=== PATIENT | female | born 1985 | race Caucasian/White ===

== ENCOUNTER 2016-12-17 19:44 | Observation (INO) | payer BC ==
--- NOTE | 2016-12-17 19:53 | PDOC ---
[id number] No Limitations - History of Present Illness Initial Comments: 12/17/16 20:54 The patient is a 31-year-old female, with a significant past medical history of anxiety and panic attacks, who presents to the emergency department complaining of substernal chest pain and shortness of breath that began earlier this afternoon at approximately 17:00 pm. The patient reports she was on the phone when she began to get into the heated argument with the person on the other end of the line. At the moment she began to feel chest tightness and sharp substernal non-radiating chest pain. She rates the pain as a 10/10. She reports associated SOB, but denies palpitations, diaphoresis, or syncope. She reports these symptoms feel similar to her previous anxiety attacks. The patient reports she was at work, at the [employer] [employer] when her symptoms began. She states she was given xanax with minimal relief. She states her symptoms were exacerbated when staff members in the [place] kept coming to check on her. She denies any nausea, vomiting, diarrhea, or constipation. Her LMP was on . She denies any recent travel or sick contacts Allergies: fentanyl and ibuprofen (anaphalaxyis) Past Surgical History: Shoulder surgery (1 month ago) Social History: Non-smoker. Denies alcohol or drug use. <Rachel Mejias - Last Filed: 12/18/16 16:37> <Shazia Andrews - Last Filed: 12/18/16 22:38> - General Stated Complaint: ANXIETY, CHEST PAIN Time Seen by Provider: 12/17/16 19:50 Past History <Rachel Mejias - Last Filed: 12/18/16 16:37> <Shazia Andrews - Last Filed: 12/18/16 22:38> - Past Medical History Allergies/Adverse Reactions: Allergies Allergy/AdvReac Type Severity Reaction Status Date / Time fentanyl Allergy Verified 12/17/16 20:28 ibuprofen Allergy Verified 12/17/16 20:28 Home Medications: Ambulatory Orders Oxycodone HCl/Acetaminophen [Percocet 5-325 mg Tablet] 1 - 2 tab PO Q4H PRN Alprazolam [Xanax] 0.25 mg PO ONCE #4 tablet MDD 2 12/18/16 Multivitamins [Multivit ([facility] Formulary)] 1 tab PO DAILY 12/18/16 Review of Systems - Review of Systems Able to Perform ROS?: Yes Comments:: 12/17/16 20:54 GENERAL/CONSTITUTIONAL: No fever or chills. No weakness. HEAD, EYES, EARS, NOSE AND THROAT: No change in vision. No ear pain or discharge. No sore throat. CARDIOVASCULAR: +Chest pain, +shortness of breath. RESPIRATORY: No cough, wheezing, or hemoptysis. GASTROINTESTINAL: No nausea, vomiting, diarrhea or constipation. GENITOURINARY: No dysuria, frequency, or change in urination. MUSCULOSKELETAL: No joint or muscle swelling or pain. No neck or back pain. SKIN: No rash NEUROLOGIC: +Anxiety. No headache, vertigo, loss of consciousness, or change in strength/sensation. ENDOCRINE: No increased thirst. No abnormal weight change. HEMATOLOGIC/LYMPHATIC: No anemia, easy bleeding, or history of blood clots. ALLERGIC/IMMUNOLOGIC: No hives or skin allergy. <Rachel Mejias - Last Filed: 12/18/16 16:37> *Physical Exam - Vital Signs Last Vital Signs Temp Pulse Resp BP Pulse Ox 98.1 F 86 18 108/64 100 12/17/16 20:04 12/17/16 20:04 12/17/16 20:04 12/17/16 20:04 12/17/16 20:04 - Physical Exam Comments: 12/17/16 20:55 GENERAL: Oriented but somnolent HEAD: No signs of trauma EYES: PERRLA, EOMI, sclera anicteric, conjunctiva clear ENT: Auricles normal inspection, hearing grossly normal, nares patent, oropharynx clear without exudates. Moist mucosa NECK: Normal ROM, supple, no lymphadenopathy, JVD, or masses LUNGS: Breath sounds equal, clear to auscultation bilaterally. No wheezes, and no crackles HEART: Regular rate and rhythm, normal S1 and S2, no murmurs, rubs or gallops ABDOMEN: Soft, nontender, normoactive bowel sounds. No guarding, no rebound. No masses EXTREMITIES: Normal range of motion, no edema. No clubbing or cyanosis. No cords, erythema, or tenderness NEUROLOGICAL: Cranial nerves II through XII grossly intact. Normal speech, normal gait SKIN: Warm, Dry, normal turgor, no rashes or lesions noted. <Rachel Mejias - Last Filed: 12/18/16 16:37> Heart Score/ECG Review - ECG Impressions Comment:: 12/17/16 22:31 Vent. Rate: 66 bpm IMPRESSION: Normal sinus rhythm. Nonspecific T wave abnormality. <Rachel Mejias - Last Filed: 12/18/16 16:37> ED Treatment Course - LABORATORY CBC & Chemistry Diagram: 12/18/16 05:30 12/17/16 20:20 - RADIOLOGY Radiology Studies Ordered: 12/18/16 16:37 EXAM: CXR INTERPRETED BY: Dr. Ramachandran REVIEWED BY: Dr. Andrews IMPRESSION: No acute pathology. <Rachel Mejias - Last Filed: 12/18/16 16:37> - LABORATORY CBC & Chemistry Diagram: 12/18/16 05:30 12/17/16 20:20 <Shazia Andrews - Last Filed: 12/18/16 22:38> Medical Decision Making - Medical Decision Making 12/18/16 22:35 Pt came for chest pain that began today after an argument with her baby's dad, while she was at work. Pt states that she has never had chest pain like this. First cardiac enzymes is normal, however, pt is found to be anemic. We have no baseling blood tests on the patient. She also has ischemic flt T waves on EKG; we coffey mila old EKGs and it is not clear if this is an old or new development. Pt will be admitted to telemetry observation to investigate her anemia and ischemic EKG findings and her chest pain <Shazia Andrews - Last Filed: 12/18/16 22:38> *DC/Admit/Observation/Transfer - Attestations Scribe Attestion: 12/17/16 20:55 Documentation prepared by Rachel Mejias, acting as medical officer for Shazia Andrews MD. <Rachel Mejias - Last Filed: 12/18/16 16:37> - Discharge Dispostion Admit: Yes <Shazia Andrews - Last Filed: 12/18/16 22:38> Diagnosis at time of Disposition: Anemia, Abnormal ECG, Chest pain - Discharge Dispostion Condition at time of disposition: Stable - Prescriptions - Referrals
[2016-12-17] MEDS ORDERED: LORazepam 1 MG TABLET PO ONE (20:00)
[2016-12-17 20:42] LABS: EOSINOPHIL 2.3 % (0-4.5); MCH 22.6 pg (25.7-33.7); MCHC 31.6 g/dl (32.0-36.0); MEAN CELL VOLUME 71.6 fl (80-96); MEAN PLT VOLUME 7.2 fl (7.5-11.1); PLATELET COUNT 305 K/MM3 (134-434); RDW 19.2 % (11.6-15.6); WHITE BLOOD COUNT 6.1 K/mm3 (4.0-10.0)
[2016-12-17] MEDS ORDERED: CLOPIDOGREL BISULFATE 75 MG TABLET (FP) PO ONE (20:46)
[2016-12-17] MEDS ORDERED: ACETAMINOPHEN 325 MG TABLET (FP) PO ONE (20:47)
[2016-12-17] MEDS ORDERED: diphenhydrAMINE HCL 25 MG CAPSULE (FP) PO ONE ×2 (20:59→21:01)
[2016-12-17] MEDS ORDERED: ACETAMINOPHEN 325 MG TABLET (FP) ONE (21:01)
[2016-12-17] MEDS ORDERED: OXYCODONE/APAP 5/325MG COMBO TABLET PO ONE (21:05)
[2016-12-17] MEDS ORDERED: OXYCODONE/APAP 5/325MG COMBO TABLET ONE (21:08)
[2016-12-17 21:21] LABS: ALBUMIN 3.3 g/dl (3.4-5.0); ANION GAP 14 (8-16); BILIRUBIN,TOTAL 0.1 mg/dL (0.2-1.0); CALCIUM 8.1 mg/dL (8.5-10.1); CO2 24 mmol/L (21-32); CREATININE 0.7 mg/dL (0.55-1.02); GLUCOSE,RANDOM 109 mg/dL (74-106); SGOT/AST 26 U/L (15-37); SGPT/ALT 25 U/L (12-78); TOT PROT 6.7 g/dl (6.4-8.2)
[2016-12-17 21:24] LABS: ALK PHOS 84 U/L (45-117); TROPONIN I < 0.02 ng/ml (0.00-0.05)
[2016-12-17 21:30] LABS: ANISOCYTOSIS 1+; HYPOCHROMIA 2+; MICROCYTOSIS 1+; PLATELET ESTIMATE ADEQUATE (NORMAL)
--- NOTE | 2016-12-17 22:34 | HP ---
CHIEF COMPLAINT: Chest Pain PCP: Dr. Theo Delgado HISTORY OF PRESENT ILLNESS: Patient is a 31 year old female with a PMHx of anemia and anxiety (Diagnosed in 2011) who complaing of substernal chest pain every time she tries to take a deep breath in. Patient reports around 1700 today at work she was on the phone with her kids father and was in a heated argument. After she finished the conversation patient states she felt "very hot", flushed, and could not breathe properly. At the office she was given xanax and oxygen. When asking to describe the chest pain patient states she is unable to describe the pain and that it was a "weird" chest pain. She reports it's nonradiating, intermittent lasting for a few seconds and the pain only comes when she takes a deep breath in. Patient reports a history of chest pain but never went to the hospital for it and relates it to her anxiety. She denies every having an ECHO or stress test done. LMP was on 11/19/16. Patient's EKG was abnormal in the ED. Otherwise, patient denies palpitations, diaphoresis, fever, chills, nausea, vomiting, headaches, dizziness, loss of consciousness, acute vision changes, abdominal pain, dysuria, hematuria, urgency, difficulty ambulating. ER course was notable for: (1) Plavix 75mg (2) Benadryl 50mg (3) Tylenol 650mg Recent Travel: None PAST MEDICAL HISTORY: Anemia and Anxiety diagnosed in 2011 PAST SURGICAL HISTORY: Social History: Smoking: Denies Alcohol: Denies Drugs: Denies Family History: Denies any sudden cardiac arrest or NM's. Does report HTN and DM in both her parents sides Allergies fentanyl Allergy (Verified 12/17/16 20:28) ibuprofen Allergy (Verified 12/17/16 20:28) HOME MEDICATIONS: Medication Instructions Recorded Alprazolam [Xanax] 0.25 mg PO ONCE 12/17/16 Oxycodone HCl/Acetaminophen 1 - 2 tab PO Q4H PRN 12/17/16 [Percocet 5-325 mg Tablet] REVIEW OF SYSTEMS CONSTITUTIONAL: Absent: fever, chills, diaphoresis, generalized weakness, malaise, loss of appetite, weight change HEENT: Absent: rhinorrhea, nasal congestion, throat pain, throat swelling, difficulty swallowing, mouth swelling, ear pain, eye pain, visual changes CARDIOVASCULAR: chest pain Absent: syncope, palpitations, irregular heart rate, lightheadedness, peripheral edema RESPIRATORY: shortness of breath Absent: cough, dyspnea with exertion, orthopnea, wheezing, stridor, hemoptysis GASTROINTESTINAL: Absent: abdominal pain, abdominal distension, nausea, vomiting, diarrhea, constipation, melena, hematochezia GENITOURINARY: Absent: dysuria, frequency, urgency, hesitancy, hematuria, flank pain, genital pain MUSCULOSKELETAL: Absent: myalgia, arthralgia, joint swelling, back pain, neck pain SKIN: Absent: rash, itching, pallor HEMATOLOGIC/IMMUNOLOGIC: Absent: easy bleeding, easy bruising, lymphadenopathy, frequent infections ENDOCRINE: Absent: unexplained weight gain, unexplained weight loss, heat intolerance, cold intolerance NEUROLOGIC: Absent: headache, focal weakness or paresthesias, dizziness, unsteady gait, seizure, mental status changes, bladder or bowel incontinence PSYCHIATRIC: anxiety Absent: depression, suicidal or homicidal ideation, hallucinations. PHYSICAL EXAMINATION Vital Signs - 24 hr 12/17/16 20:04 Temperature 98.1 F Pulse Rate 86 Respiratory 18 Rate Blood Pressure 108/64 O2 Sat by Pulse 100 Oximetry (%) GENERAL: Awake, alert, and fully oriented, in no acute distress. HEAD: Normal with no signs of trauma. EYES: Pupils equal, round and reactive to light, extraocular movements intact, sclera anicteric, conjunctiva clear. No lid lag. EARS, NOSE, THROAT: Ears normal, nares patent, oropharynx clear without exudates. Moist mucous membranes. NECK: Normal range of motion, supple without lymphadenopathy, JVD, or masses. LUNGS: Breath sounds equal, clear to auscultation bilaterally. No wheezes, and no crackles. No accessory muscle use. HEART: Regular rate and rhythm, normal S1 and S2 without murmur, rub or gallop. ABDOMEN: Soft, nontender, not distended, normoactive bowel sounds, no guarding, no rebound, no masses. No hepatomegaly or splenomegaly. MUSCULOSKELETAL: Normal range of motion at all joints. No bony deformities or tenderness. No CVA tenderness. UPPER EXTREMITIES: 2+ pulses, warm, well-perfused. No cyanosis. No clubbing. Cap refill <2 seconds. No peripheral edema. LOWER EXTREMITIES: 2+ pulses, warm, well-perfused. No calf tenderness. No peripheral edema. NEUROLOGICAL: Cranial nerves II-XII intact. Normal speech. PSYCHIATRIC: Cooperative. Good eye contact. Appropriate mood and affect. SKIN: Warm, dry, normal turgor, no rashes or lesions noted. Laboratory Results - last 24 hr 12/17/16 12/17/16 12/17/16 20:20 20:20 20:20 WBC 6.1 RBC 3.92 Hgb 8.9 L Hct 28.1 L MCV 71.6 L MCHC 31.6 L RDW 19.2 H Plt Count 305 MPV 7.2 L Neutrophils % 47.0 Lymphocytes % 40.4 H Monocytes % 9.3 Eosinophils % 2.3 Basophils % 1.0 Platelet Estimate Adequate Hypochromic-Microcytic 2+ Anisocytosis 1+ Microcytosis 1+ Morphology Comment Slide scanned Sodium 144 Potassium 3.7 Chloride 106 Carbon Dioxide 24 Anion Gap 14 BUN 11 Creatinine 0.7 Creat Clearance w eGFR > 60 Random Glucose 109 H Calcium 8.1 L Total Bilirubin 0.1 L AST 26 ALT 25 Alkaline Phosphatase 84 Creatine Kinase 202 H CK-MB (CK-2) 1.200 Troponin I < 0.02 Total Protein 6.7 Albumin 3.3 L Serum , Qual Negative EKG: NSR @66 BPMP, (+) Non-specific T-wave abnormalities Chest X-ray: Negative for acute pathology ASSESSMENT/PLAN: Patient is a 31 year old female with a PMHx of Anemia and Anxiety who presents to the ED complaining of atypical chest pain that began today after a heated argument with her kids father and continues to occur every time she takes a deep breath in. Patient admitted for observation telemetry for further monitoring and management. Atypical Chest Pain -Likely from anxiety vs. drug use vs. ACS -Troponin negative -Chest x-ray negative for acute pathology -No active chest pain -EKG revealed nonspecific T-wave abnormalities -Repeat second set of troponin -Urine toxicology ordered -Lipid profile ordered -EKG in the morning -Cardiac monitoring Pruritis -Benadryl 50mg PO Normocytic Anemia -Hgb of 8.9 -FE, TIBC, Ferritin, and Reticulocyte ordered -Transfuse if <7 -Trend CBC Anxiety -Xanax 0.25mg F/E/N -On no fluids -Electrolytes wnl -Regular diet Prophylaxis -SCD's for DVT -No GI needed Disposition -Full code -Will continue to monitor on telemetry. Visit type - Emergency Visit Emergency Visit: Yes ED Registration Date: 12/17/16 Care time: The patient presented to the Emergency Department on the above date and was hospitalized for further evaluation of their emergent condition. - New Patient This patient is new to me today: Yes Date on this admission: 12/18/16 - Critical Care Critical Care patient: No
[2016-12-17] MEDS ORDERED: ALPRAZolam 0.25 MG TABLET PO ONE (23:32)
[2016-12-17] MEDS ORDERED: ALPRAZolam 0.25 MG TABLET ONE (23:42)
--- NOTE | 2016-12-18 00:59 | PN ---
<Claudia Brown - Last Filed: 12/18/16 01:15> Teaching Attending Note ATTENDING PHYSICIAN STATEMENT I saw and evaluated the patient. I reviewed the resident's note and discussed the case with the resident. I agree with the resident's findings and plan as documented. SUBJECTIVE: The patient is a 31 yo F with a PMhx of Anemia, anxiety who presented to Ed complaining of 1 day hx of mid sternal chest pain, 10/10 in severity, nonradiating. Patient request Ativan upon evaluation and what to makes sure she receives a new prescription for Xanax upon discharge. Denies associated SOB. Denies any exertional activity. No prior episode of chest pain before. No family hx of CAD or CA. PMHx: Anemia and Anxiety PShx: C- Section Allergies: Fentanyl, Ibuprofen Social hx: Denies Fam hx: HTN and DM OBJECTIVE: Physical Last Vital Signs Temp Pulse Resp BP Pulse Ox 98.1 F 86 18 108/64 100 12/17/16 20:04 12/17/16 20:04 12/17/16 20:04 12/17/16 20:04 12/17/16 20:04 GENERAL: Awake, alert, and fully oriented, in no acute distress HEENT: Atraumatic. PERRLA, EOMI. Moist mucosa. No JVD LUNGS: No distress, speaks full sentences, clear to auscultation bilaterally HEART: Regular rate and rhythm, normal S1 and S2, no murmurs, rubs or gallops, peripheral pulses normal and equal bilaterally. ABDOMEN: Soft, nontender, normoactive bowel sounds. No guarding, no rebound. No masses EXTREMITIES: Normal inspection, Normal range of motion, no edema. No clubbing or cyanosis. NEUROLOGICAL: + Appears somewhat lethargic and somnolent. Cranial nerves II through XII grossly intact. Normal speech, normal gait, no focal sensorimotor deficits SKIN: Warm, Dry, normal turgor, no rashes or lesions noted. Labs CBCD WBC 6.1 K/mm3 (4.0-10.0) 12/17/16 20:20 RBC 3.92 M/mm3 (3.60-5.2) 12/17/16 20:20 Hgb 8.9 GM/dL (10.7-15.3) L 12/17/16 20:20 Hct 28.1 % (32.4-45.2) L 12/17/16 20:20 MCV 71.6 fl (80-96) L 12/17/16 20:20 MCHC 31.6 g/dl (32.0-36.0) L 12/17/16 20:20 RDW 19.2 % (11.6-15.6) H 12/17/16 20:20 Plt Count 305 K/MM3 (134-434) 12/17/16 20:20 MPV 7.2 fl (7.5-11.1) L 12/17/16 20:20 CMP Sodium 144 mmol/L (136-145) 12/17/16 20:20 Potassium 3.7 mmol/L (3.5-5.1) 12/17/16 20:20 Chloride 106 mmol/L (98-107) 12/17/16 20:20 Carbon Dioxide 24 mmol/L (21-32) 12/17/16 20:20 Anion Gap 14 (8-16) 12/17/16 20:20 BUN 11 mg/dL (7-18) 12/17/16 20:20 Creatinine 0.7 mg/dL (0.55-1.02) 12/17/16 20:20 Creat Clearance w eGFR > 60 (>60) 12/17/16 20:20 Calcium 8.1 mg/dL (8.5-10.1) L 12/17/16 20:20 Total Bilirubin 0.1 mg/dL (0.2-1.0) L 12/17/16 20:20 AST 26 U/L (15-37) 12/17/16 20:20 ALT 25 U/L (12-78) 12/17/16 20:20 Alkaline Phosphatase 84 U/L (45-117) 12/17/16 20:20 Total Protein 6.7 g/dl (6.4-8.2) 12/17/16 20:20 Albumin 3.3 g/dl (3.4-5.0) L 12/17/16 20:20 Radiological Exams Chest Xray- No acute pathology. Final read pending. ASSESSMENT AND PLAN: The patient is a 31 yo F with no cardiac history presenting with atypical chest pain and nonspecific EKG changes. - Telemetry observation. - Cardiac enzymes - EKG in AM - If workup is normal and no acute event on Telemetry, may follow up on outpatient basis. Documentation prepared by Claudia Brown, acting as forensic medical examiner for Oc Killian MD <Oc Killian - Last Filed: 12/18/16 06:23> Teaching Attending Note Name of Resident: Gavi Metcalf A:
[2016-12-18 07:17] LABS: BASOPHIL 0.5 % (0-2.0); EOSINOPHIL 2.7 % (0-4.5); MCH 22.8 pg (25.7-33.7); MCHC 31.9 g/dl (32.0-36.0); MEAN CELL VOLUME 71.4 fl (80-96); MEAN PLT VOLUME 7.5 fl (7.5-11.1); NEUTROPHILS 43.5 % (42.8-82.8); PLATELET COUNT 284 K/MM3 (134-434); RDW 19.4 % (11.6-15.6); WHITE BLOOD COUNT 5.1 K/mm3 (4.0-10.0)
[2016-12-18 07:51] LABS: CHOLESTEROL 154 mg/dL (50-200); LDL CHOLESTEROL (ONLY SJRH) 99 mg/dL (5-100); TROPONIN I < 0.02 ng/ml (0.00-0.05)
[2016-12-18 11:24] VITALS: BMI 27.4
[2016-12-18 11:45] LABS: URINE APPEARANCE SLCLOUDY; URINE BILIRUBIN NEGATIVE (NEGATIVE); URINE BLOOD NEGATIVE (NEGATIVE); URINE COLOR YELLOW; URINE GLUCOSE (UA) NEGATIVE (NEGATIVE); URINE KETONE NEGATIVE (NEGATIVE); URINE LEUK ESTERASE NEGATIVE (NEGATIVE); URINE NITRITE NEGATIVE (NEGATIVE); URINE PROTEIN NEGATIVE (NEGATIVE); URINE UROBILINOGEN NEGATIVE E.U./dl (0.2-1.0)
[2016-12-18 12:10] LABS: URINE MARIJUANA THC POSITIVE ng/ml (CUTOFF=50)
[2016-12-18 12:47] LABS: TROPONIN I < 0.02 ng/ml (0.00-0.05)
[2016-12-18] MEDS ORDERED: ALPRAZolam 0.25 MG TABLET PO PRN (14:11)
[2016-12-18] MEDS ORDERED: OXYCODONE/APAP 5/325MG COMBO TABLET PO PRN (14:12)
[2016-12-18 18:37] LABS: TROPONIN I < 0.02 ng/ml (0.00-0.05)
--- NOTE | 2016-12-18 18:44 | PN ---
Physical Exam: SUBJECTIVE: Patient seen and examined No further chest pain. comfortable post Xanax 0.25mg x one dose given in ED. OBJECTIVE: Vital Signs Temperature 98 F 12/18/16 14:33 Pulse Rate 76 12/18/16 14:33 Respiratory Rate 16 12/18/16 14:33 Blood Pressure 114/71 12/18/16 14:33 O2 Sat by Pulse Oximetry (%) 98 12/18/16 14:33 GENERAL: The patient is awake, alert, and fully oriented, in no acute distress. HEAD: Normal with no signs of trauma. EYES: PERRL, extraocular movements intact, sclera anicteric, conjunctiva clear. No ptosis. ENT: Ears normal, nares patent, oropharynx clear without exudates, moist mucous membranes. NECK: Trachea midline, full range of motion, supple. LUNGS: Breath sounds equal, clear to auscultation bilaterally, no wheezes, no crackles, no accessory muscle use. HEART: Regular rate and rhythm, S1, S2 without murmur, rub or gallop. ABDOMEN: Soft, nontender, nondistended, normoactive bowel sounds, no guarding, no rebound, no hepatosplenomegaly, no masses. EXTREMITIES: 2+ pulses, warm, well-perfused, no edema. NEUROLOGICAL: Cranial nerves II through XII grossly intact. Normal speech, gait not observed. PSYCH: Normal mood, normal affect. SKIN: Warm, dry, normal turgor, no rashes or lesions noted Laboratory Results - last 24 hr 12/18/16 12/18/16 12/18/16 05:30 05:30 05:30 WBC 5.1 RBC 3.91 Hgb 8.9 L Hct 28.0 L MCV 71.4 L MCHC 31.9 L RDW 19.4 H Plt Count 284 MPV 7.5 Neutrophils % 43.5 Lymphocytes % 43.5 H Monocytes % 9.8 Eosinophils % 2.7 Basophils % 0.5 Retic Count 1.28 Ferritin Creatine Kinase 154 D Troponin I < 0.02 Triglycerides 97 Cholesterol 154 Total LDL Cholesterol 99 HDL Cholesterol 47 Urine Color Urine Appearance Urine pH Ur Specific [place] Urine Protein Urine Glucose (UA) Urine Ketones Urine Blood Urine Nitrite Urine Bilirubin Urine Urobilinogen Ur Leukocyte Esterase Opiates Screen Methadone Screen Barbiturate Screen Phencyclidine Screen Ur Amphetamines Screen MDMA (Ecstasy) Screen Benzodiazepines Screen Cocaine Screen U Marijuana (THC) Screen 12/18/16 12/18/16 12/18/16 05:30 11:24 11:24 WBC RBC Hgb Hct MCV MCHC RDW Plt Count MPV Neutrophils % Lymphocytes % Monocytes % Eosinophils % Basophils % Retic Count Ferritin 4.881 L Creatine Kinase Troponin I Triglycerides Cholesterol Total LDL Cholesterol HDL Cholesterol Urine Color Yellow Urine Appearance Slcloudy Urine pH 5.0 Ur Specific [place] 1.025 Urine Protein Negative Urine Glucose (UA) Negative Urine Ketones Negative Urine Blood Negative Urine Nitrite Negative Urine Bilirubin Negative Urine Urobilinogen Negative Ur Leukocyte Esterase Negative Opiates Screen Positive Methadone Screen Negative Barbiturate Screen Negative Phencyclidine Screen Negative Ur Amphetamines Screen Negative MDMA (Ecstasy) Screen Positive Benzodiazepines Screen Positive Cocaine Screen Negative U Marijuana (THC) Screen Positive 12/18/16 12/18/16 11:50 17:58 WBC RBC Hgb Hct MCV MCHC RDW Plt Count MPV Neutrophils % Lymphocytes % Monocytes % Eosinophils % Basophils % Retic Count Ferritin Creatine Kinase 151 152 Troponin I < 0.02 < 0.02 Triglycerides Cholesterol Total LDL Cholesterol HDL Cholesterol Urine Color Urine Appearance Urine pH Ur Specific [place] Urine Protein Urine Glucose (UA) Urine Ketones Urine Blood Urine Nitrite Urine Bilirubin Urine Urobilinogen Ur Leukocyte Esterase Opiates Screen Methadone Screen Barbiturate Screen Phencyclidine Screen Ur Amphetamines Screen MDMA (Ecstasy) Screen Benzodiazepines Screen Cocaine Screen U Marijuana (THC) Screen Active Medications Generic Name Dose Route Start Last Admin Trade Name Freq PRN Reason Stop Dose Admin Alprazolam 0.25 mg 12/18/16 14:11 Xanax - PO ONCE PRN ANXIETY Oxycodone/Acetaminophen 2 combo 12/18/16 14:12 12/18/16 14:31 Percocet 5/325 - PO 2 combo ONCE PRN Administration PAIN ASSESSMENT/PLAN: Patient is a 31 year old female with a PMHx of anemia and anxiety (Diagnosed in 2011) who complaing of substernal chest pain every time she tries to take a deep breath in. #Acute chest pain due to her anxiety attack resolved post Xanax 4 sets of troponin negative EKG non specific changes, NSR cardiology follow up with for ECHO and stress test.
--- NOTE | 2016-12-18 18:53 | DS ---
Physical Exam: SUBJECTIVE: Patient seen and examined No further chest pain. comfortable post Xanax 0.25mg x one dose given in ED. Vital Signs Temperature 98 F 12/18/16 14:33 Pulse Rate 76 12/18/16 14:33 Respiratory Rate 16 12/18/16 14:33 Blood Pressure 114/71 12/18/16 14:33 O2 Sat by Pulse Oximetry (%) 98 12/18/16 14:33 GENERAL: The patient is awake, alert, and fully oriented, in no acute distress. HEAD: Normal with no signs of trauma. EYES: PERRL, extraocular movements intact, sclera anicteric, conjunctiva clear. No ptosis. ENT: Ears normal, nares patent, oropharynx clear without exudates, moist mucous membranes. NECK: Trachea midline, full range of motion, supple. LUNGS: Breath sounds equal, clear to auscultation bilaterally, no wheezes, no crackles, no accessory muscle use. HEART: Regular rate and rhythm, S1, S2 without murmur, rub or gallop. ABDOMEN: Soft, nontender, nondistended, normoactive bowel sounds, no guarding, no rebound, no hepatosplenomegaly, no masses. EXTREMITIES: 2+ pulses, warm, well-perfused, no edema. NEUROLOGICAL: Cranial nerves II through XII grossly intact. Normal speech, gait not observed. PSYCH: Normal mood, normal affect. SKIN: Warm, dry, normal turgor, no rashes or lesions noted OBJECTIVE: Laboratory Results - last 24 hr 12/18/16 12/18/16 12/18/16 05:30 05:30 05:30 WBC 5.1 RBC 3.91 Hgb 8.9 L Hct 28.0 L MCV 71.4 L MCHC 31.9 L RDW 19.4 H Plt Count 284 MPV 7.5 Neutrophils % 43.5 Lymphocytes % 43.5 H Monocytes % 9.8 Eosinophils % 2.7 Basophils % 0.5 Retic Count 1.28 Ferritin Creatine Kinase 154 D Troponin I < 0.02 Triglycerides 97 Cholesterol 154 Total LDL Cholesterol 99 HDL Cholesterol 47 Urine Color Urine Appearance Urine pH Ur Specific [place] Urine Protein Urine Glucose (UA) Urine Ketones Urine Blood Urine Nitrite Urine Bilirubin Urine Urobilinogen Ur Leukocyte Esterase Opiates Screen Methadone Screen Barbiturate Screen Phencyclidine Screen Ur Amphetamines Screen MDMA (Ecstasy) Screen Benzodiazepines Screen Cocaine Screen U Marijuana (THC) Screen 12/18/16 12/18/16 12/18/16 05:30 11:24 11:24 WBC RBC Hgb Hct MCV MCHC RDW Plt Count MPV Neutrophils % Lymphocytes % Monocytes % Eosinophils % Basophils % Retic Count Ferritin 4.881 L Creatine Kinase Troponin I Triglycerides Cholesterol Total LDL Cholesterol HDL Cholesterol Urine Color Yellow Urine Appearance Slcloudy Urine pH 5.0 Ur Specific [place] 1.025 Urine Protein Negative Urine Glucose (UA) Negative Urine Ketones Negative Urine Blood Negative Urine Nitrite Negative Urine Bilirubin Negative Urine Urobilinogen Negative Ur Leukocyte Esterase Negative Opiates Screen Positive Methadone Screen Negative Barbiturate Screen Negative Phencyclidine Screen Negative Ur Amphetamines Screen Negative MDMA (Ecstasy) Screen Positive Benzodiazepines Screen Positive Cocaine Screen Negative U Marijuana (THC) Screen Positive 12/18/16 12/18/16 11:50 17:58 WBC RBC Hgb Hct MCV MCHC RDW Plt Count MPV Neutrophils % Lymphocytes % Monocytes % Eosinophils % Basophils % Retic Count Ferritin Creatine Kinase 151 152 Troponin I < 0.02 < 0.02 Triglycerides Cholesterol Total LDL Cholesterol HDL Cholesterol Urine Color Urine Appearance Urine pH Ur Specific [place] Urine Protein Urine Glucose (UA) Urine Ketones Urine Blood Urine Nitrite Urine Bilirubin Urine Urobilinogen Ur Leukocyte Esterase Opiates Screen Methadone Screen Barbiturate Screen Phencyclidine Screen Ur Amphetamines Screen MDMA (Ecstasy) Screen Benzodiazepines Screen Cocaine Screen U Marijuana (THC) Screen HOSPITAL COURSE: Date of Admission:12/17/16 Date of Discharge: 12/18/16 Patient is a 31 year old female with a PMHx of anemia and anxiety (Diagnosed in 2011) who complaining of substernal chest pain every time she tries to take a deep breath in. #Acute chest pain due to her anxiety attack resolved post Xanax 4 sets of troponin negative EKG non specific changes, NSR cardiology follow up with for ECHO and stress test. Minutes to complete discharge: 40 Discharge Summary Reason For Visit: ANEMIA/ABN ECG/ CHEST PAIN Current Active Problems Abnormal ECG (Acute) Anemia (Acute) Chest pain (Acute) Condition: Stable - Instructions Diet, Activity, Other Instructions: follow with [facility] as an outpatient for further work up EChocardiogram and stress test. Referrals: Chago Madrid MD [Staff Physician] - Theo Delgado [Primary Care Provider] - Disposition: HOME - Home Medications Comprehensive Discharge Medication List: Ambulatory Orders Oxycodone HCl/Acetaminophen [Percocet 5-325 mg Tablet] 1 - 2 tab PO Q4H PRN Alprazolam [Xanax] 0.25 mg PO ONCE #4 tablet MDD 2 12/18/16 Multivitamins [Multivit ([facility] Formulary)] 1 tab PO DAILY 12/18/16 This patient is new to me today: Yes Date on this admission: 12/18/16 Emergency Visit: Yes ED Registration Date: 12/17/16 Care time: The patient presented to the Emergency Department on the above date and was hospitalized for further evaluation of their emergent condition. Critical Care patient: No - Discharge Referral [facility]erred to [facility] Yes Physician Referral: Yohan Mehta MD ([facility])
[2016-12-18 19:17] VITALS: BP 118/92; PULSE 87; TEMP 98.3
[2016-12-19 08:10] LABS: SERUM IRON 21 ug/dL (27-159); TOTAL IRON BINDING CAPACITY 356 ug/dL (250-450); UIBC 335 ug/dL (131-425)
--- NOTE | 2016-12-19 23:34 | EKG ---
Test Reason : Blood Pressure : / mmHG Vent. Rate : 076 BPM Atrial Rate : 076 BPM P-R Int : 118 ms QRS Dur : 084 ms QT Int : 386 ms P-R-T Axes : 038 -09 -17 degrees QTc Int : 434 ms NORMAL SINUS RHYTHM NONSPECIFIC T WAVE ABNORMALITY ABNORMAL ECG WHEN COMPARED WITH ECG OF 17-DEC-2016 20:01, NO SIGNIFICANT CHANGE WAS FOUND Confirmed by SEBAS MORAES MD ([id number]) on 12/19/2016 11:34:15 PM Referred By: Confirmed By:SEBAS MORAES MD
--- NOTE | 2016-12-19 23:45 | EKG ---
Test Reason : Blood Pressure : / mmHG Vent. Rate : 066 BPM Atrial Rate : 066 BPM P-R Int : 116 ms QRS Dur : 084 ms QT Int : 400 ms P-R-T Axes : 027 -07 -14 degrees QTc Int : 419 ms NORMAL SINUS RHYTHM NONSPECIFIC T WAVE ABNORMALITY ABNORMAL ECG NO PREVIOUS ECGS AVAILABLE Confirmed by SEBAS MORAES MD ([id number]) on 12/19/2016 11:45:19 PM Referred By: Confirmed By:SEBAS MORAES MD
== END 2016-12-18 15:38 | disposition home or self-care (01) ==
LOC: JER 19:44 → JERBED 23:07
PROVIDERS: ADMIT Internal Medicine; ATTEND Internal Medicine
DX: R07.89 Other chest pain (principal); D64.9 Anemia, unspecified; R94.31 Abnormal electrocardiogram [ECG] [EKG]; L29.8 Other pruritus; F41.0 Panic disorder [episodic paroxysmal anxiety]
CPT/HCPCS: 36415; 71020-TC; 80053; 80061; 80307; 81003; 82550; 82553; 82728; 83540; 83550; 83721; 84484; 84703; 85025; 85027; 85044; 93005; 93010; 99284-25; G0378; G0480